=== PATIENT | male | born 1985 | race Caucasian/White ===

== ENCOUNTER 2024-01-28 21:55 | Outpatient (REF) | payer BC, SELFPAY ==
[2024-01-28 22:21] LABS: Amphetamine Screen Urine Negative (Negative); Barbiturate Screen Urine Negative (Negative); Benzodiazepines Screen Urine Negative (Negative); Cannabinoid Screen Urine Negative (Negative); Cocaine Screen Urine Negative (Negative); Methadone Screen Urine Negative (Negative); Methamphetamines Screen Urine Negative (Negative); Opiate Screen Urine Negative (Negative); Oxycodone Screen Urine Negative (Negative); Phencyclidine Screen Urine Negative (Negative); Tricyclic Antidepressant Urine Negative (Negative)
[2024-01-30 07:09] LABS: Folate, Serum 14.4 ng/mL (>=5.9)
== END 2024-01-28 21:56 | disposition home or self-care (01) ==
LOC: NPINS 21:55
PROVIDERS: Visit Provider Registered Nurse Psychiatric/Mental Health
DX: F90.2 Attention-deficit hyperactivity disorder, combined type (principal); Z79.899 Other long term (current) drug therapy
CPT/HCPCS: 80306; 82746

== ENCOUNTER 2024-07-09 11:01 | Emergency (ER) | payer BC, SELFPAY ==
[2024-07-09 11:11] VITALS: BP 116/72; PULSE 73; RESP 16; TEMP 36.4; O2SAT 99; BMI 26.4
--- NOTE | 2024-07-09 11:15 | ED.GENADULT ---
HPI - General Adult General Time Seen by Provider: 11:16 Date Seen: 07/09/24 Chief complaint: Rib Pain Stated complaint: Fall - rib pain Time Seen by Provider: 07/09/24 11:15 Source: patient, RN notes reviewed and old records reviewed Mode of arrival: ambulatory Limitations: no limitations History of Present Illness HPI narrative: 39-year-old male who presents today with chest pain after a fall playing hockey 1 week ago. Landed on his right side as right chest pain. Pain is worse with movement and breathing, no shortness of breath, no cough. He has not taken anything including Tylenol or ibuprofen for this. Came in today because it is not getting better. Related Data Home Medications ?Medication ?Instructions ?Recorded ?Confirmed bupropion HCl 300 mg 24 hr tablet, 300 mg PO QAM 03/27/23 03/27/23 extended release dupilumab 200 mg/1.14 mL 200 mg subcut Q2W 03/27/23 03/27/23 subcutaneous pen injector ([employer]) venlafaxine 100 mg tablet 100 mg PO QDAY 03/27/23 03/27/23 venlafaxine 75 mg tablet 75 mg PO QDAY 03/27/23 03/27/23 trazodone 50 mg tablet 50 mg PO QHS PRN 01/12/24 01/12/24 Previous Rx's ?Medication ?Instructions ?Recorded lidocaine 4 % topical patch 1 patch topical DAILY PRN pain #10 07/09/24 ea prednisone 20 mg tablet 20 mg PO BID #10 tabs 07/09/24 Allergies Allergy/AdvReac Type Severity Reaction Status Date / Time celecoxib [From Celebrex] AdvReac Intermediate Verified 01/12/24 12:49 [facility] Medical History (Updated 07/09/24 @ 12:18 by Roni Shine MD) Pneumonia ?J18.9 - Pneumonia, unspecified organism (ICD-10) Bronchitis ?J40 - Bronchitis, not specified as acute or chronic (ICD-10) Cough ?R05.9 - Cough, unspecified (ICD-10) Social History Smoking Status: Never smoker Do you use any of these nicotine containing products: None How often do you have a drink containing alcohol: never How often do you have six or more drinks on one occasion: Never AUDIT-C Alcohol total score: 0 Non-prescribed substance use: denies use service: No Exam Narrative: Exam Narrative: General: Well-developed and well-nourished, no acute distress Head: Atraumatic and normocephalic Eyes: Pupils are equal reactive, extraocular motions intact, conjunctiva clear ENT: External nose and ears are normal, posterior pharynx without erythema or exudate Neck: No midline cervical tenderness, full spontaneous range of motion the neck, trachea midline, no adenopathy Heart: Regular rate and rhythm no murmurs or thrills Lungs: Clear to auscultation bilaterally without wheezes or crackles. Right anterior and lateral chest wall tenderness, no bruising, deformity, or crepitus Abdomen: Soft, nontender, nondistended with active bowel sounds Musculoskeletal: No tenderness, deformity, or edema Neurologic: Awake, alert, and oriented x3, no gross focal neurologic deficits, cranial nerves intact as tested Psych: Mood and affect are appropriate Skin: No rashes Const: Vital Signs, click to edit/add: Vital Signs - 24 hr 07/09/24 11:11 Temperature 97.6 F Pulse Rate [Pulse Oximeter] 73 Respiratory Rate 16 Blood Pressure [Ri ght Upper Arm] 116/72 Pulse Oximetry 99 Oxygen Delivery Me thod Room Air Course Course ED Course: Patient seen examined, presents with chest pain after fall. Reviewed most recent physical therapy note from July 05 which is rehab status post C5-6 disc arthroplasty April 2024. Patient presents today with right-sided chest pain after fall a week ago. Has not taken anything for pain. On exam, patient is awake alert, oxygen saturation 99%, no apparent distress. Equal lung sounds bilaterally, no diminished breath sounds to suggest pneumothorax or hemothorax. Discussed plan with patient, x-ray ordered but likelihood of lung injury or nondisplaced rib fractures low, likely will not significantly change care plan. Ibuprofen ordered for pain Reevaluation(s) Time of Reevaluation #1: 12:02 Reevaluation #1: Chest x-ray independently interpreted by me does not demonstrate acute pneumothorax, hemothorax. Patient is stable for discharge with continued [id number] pain medication, Lidoderm patches, and prednisone burst. Time of Reevaluation #2: 12:17 Reevaluation #2: Radiology interpretation of x-ray with isolated nondisplaced 7th rib fracture. No change in treatment plan and stable for discharge. Vital Signs Vital signs: Initial Vital Signs Temperature 97.6 F 07/09/24 11:11 Temperature Source Temporal Artery Scan 07/09/24 11:11 Pulse Rate 73 07/09/24 11:11 Pulse Rhythm Regular 07/09/24 11:11 Respiratory Rate 16 07/09/24 11:11 Blood Pressure 116/72 07/09/24 11:11 Blood Pressure Mean 86 07/09/24 11:11 Blood Pressure Position Sitting 07/09/24 11:11 Pulse Oximetry 99 07/09/24 11:11 Oxygen Delivery Method Room Air 07/09/24 11:11 Vital Signs Temperature 97.6 F 07/09/24 11:11 Pulse Rate 73 07/09/24 11:11 Respiratory Rate 16 07/09/24 11:11 Blood Pressure 116/72 07/09/24 11:11 Pulse Oximetry 99 07/09/24 11:11 Oxygen Delivery Method Room Air 07/09/24 11:11 Temperature 97.6 F 07/09/24 11:11 Pulse Rate 73 07/09/24 11:11 Respiratory Rate 16 07/09/24 11:11 Blood Pressure 116/72 07/09/24 11:11 Pulse Oximetry 99 07/09/24 11:11 Oxygen Delivery Method Room Air 07/09/24 11:11 Medications Administered Medications: Discontinued Medications Generic Name Dose Route Start Last Admin Trade Name Joaoq PRN Reason Stop Dose Admin Ibuprofen 600 mg 07/09/24 11:30 07/09/24 11:27 Ibuprofen 200 Mg Tablet PO 07/09/24 11:31 600 mg ONCE ONE Administration Discharge Plan Discharge Clinical Impression: Chest wall contusion, Right rib fracture Patient Disposition: Home, Self-Care Condition: Stable Instructions: Rib Fracture (ED), Rib Contusion (ED) Additional Instructions: Take Tylenol and ibuprofen as needed for pain Take prednisone as prescribed for inflammation Apply Lidoderm patches for comfort Activity Level: Activity as Tolerated Discharge Diet: Regular Prescriptions: New prednisone 20 mg tablet 20 mg PO BID Qty: 10 0RF lidocaine 4 % adhesive patch,medicated 1 patch topical DAILY PRN (Reason: pain) Qty: 10 0RF No Action bupropion HCl 300 mg tablet extended release 24 hr 300 mg PO QAM venlafaxine 75 mg tablet 75 mg PO QDAY venlafaxine 100 mg tablet 100 mg PO QDAY Dupixent Pen 200 mg/1.14 mL pen injector 200 mg subcut Q2W trazodone 50 mg tablet 50 mg PO QHS PRN Fluzone Triv [id number] (PF) 45 mcg (15 mcg x 3)/0.5 mL syringe 0.5 ml IM ONCE Qty: 0.5 0RF COVID vac 24-25(12up)(Pfi)(PF) 30 mcg/0.3 mL syringe 0.3 ml IM ONCE Qty: 0.3 0RF Follow Up/Referrals: Provider,Not a Local [Primary Care Provider] - Stand Alone Forms: MyHealth Info Instructions
--- NOTE | 2024-07-09 11:25 | CRLHL7_ITS ---
For Patients: As a result of the Cures Act, medical imaging exams and procedure reports are released immediately into your electronic medical record. You may view this report before your referring provider. If you have questions, please contact your health care provider. INDICATION: Fall, pain TECHNIQUE: Chest and right ribs 3 views. COMPARISON: None FINDINGS: Cardiovascular and mediastinum: Heart size and vasculature are normal in caliber and appearance. Mediastinum is within normal limits. Lungs and pleural spaces: Lungs are clear. No sign of infiltrate or mass. No sign of pleural effusion. No pneumothorax. Bones and soft tissues: Nondisplaced right 7th rib fracture anteriorly. IMPRESSION: Nondisplaced right 7th rib fracture anteriorly. Dictated by Babatunde Carey MD @ 07/09/2024 12:14:57 PM (Electronically Signed)
[2024-07-09] MEDS: IBUPROFEN 200 MG TABLET 600 MG PO (11:27)
== END 2024-07-09 12:23 | disposition home or self-care (01) ==
PROVIDERS: Emergency Provider Family Medicine
DX: S22.31XA Fracture of one rib, right side, initial encounter for closed fracture (principal); S20.211A Contusion of right front wall of thorax, initial encounter; W19.XXXA Unspecified fall, initial encounter; Y93.22 Activity, ice hockey
CPT/HCPCS: 71101; 99283; 99284; A9270